=== PATIENT | male | born 1965 | race African-American/Black ===

== ENCOUNTER 2017-07-14 15:42 | Emergency (ER) | payer MEDICARE, MEDICAID ==
[~2017-07-14] VITALS: Ht 167.6 cm; Wt 63.0 kg
[2017-07-14 15:44] VITALS: BP 142/91
== END 2017-07-14 17:00 | disposition left against medical advice (07) ==
LOC: ER 16:16
DX: Z53.21 Procedure and treatment not carried out due to patient leaving prior to being seen by health care provider (principal)